=== PATIENT | female | born 1950 | race Caucasian/White ===

== ENCOUNTER 2020-11-25 10:59 | Inpatient (IN) | payer MEDICARE ==
[~2020-11-25] VITALS: Ht 152.4 cm; Wt 81.6 kg
--- NOTE | 2020-11-25 11:10 | NUR ---
ASSUME PATIENT CARE. PT WAS SENT BY PMD FOR FURTHER EVALUATION OF RLE PAIN AND SWELLING. PT STATES BEEN HURTING SINCE 11/18. PT GOWNED AND PLACED ON MONITOR. DENIES SOB OR ANY CHEST DISCOMFORT. AWAITING MD FRIEDMAN.
--- NOTE | 2020-11-25 11:15 | NUR ---
DR ANDRADE AT BEDSIDE FOR EVAL.
--- NOTE | 2020-11-25 11:22 | NUR ---
IV LINE STARTED BLOOD DRAWN AND SENT TO LAB.
[2020-11-25 11:29] LABS: BASOPHILS % (AUTO) 0.8 % (0.0-2.0); EOSINOPHILS % (AUTO) 4.7 % (0.0-6.0); HEMATOCRIT 39 % (33-45); HEMOGLOBIN 13.2 g/dL (11.5-14.8); LYMPHOCYTES % (AUTO) 32.3 % (20.0-44.0); MEAN CORPUSCULAR HGB CONC 34 g/dl (31.0-36.0); MEAN CORPUSCULAR VOLUME 98 fL (82-100); MONOCYTES # (AUTO) 0.7 K/uL (0.1-1.30); MONOCYTES % (AUTO) 11.7 % (2.0-12.0); NEUTROPHILS # (AUTO) 3.2 K/uL (1.8-8.9); NEUTROPHILS % (AUTO) 50.5 % (43.0-81.0); PLATELET COUNT (AUTO) 313 K/uL (150-450); RED BLOOD CELL COUNT(AUTO) 4.02 MIL/uL (4.0-5.2); WHITE BLOOD COUNT (AUTO) 6.3 K/uL (4.3-11.0)
[2020-11-25 11:36] LABS: CALCIUM, SERUM 8.4 mg/dL (8.5-10.1); POTASSIUM 3.7 mmol/L (3.5-5.1)
--- NOTE | 2020-11-25 12:25 | NUR ---
U/S TECH AT BEDSIDE FOR DUPLEX ULTRASOUND
[2020-11-25] MEDS ORDERED: VANCOMYCIN 1 GM in IV D5W 250 ML IV ONE (13:00)
[2020-11-25] MEDS ORDERED: ENOXAPARIN SODIUM 80 MG/0.8 ML DISP.SYRIN SQ ONE (13:00)
[2020-11-25] MEDS ORDERED: CEFTRIAXONE 1GM BAG (ER ONLY) 1 GM/50 ML PIGGYBACK IV ONE (13:00)
[2020-11-25] MEDS ORDERED: HYDR12.55 PO (13:02)
[2020-11-25] MEDS ORDERED: ATOR20TA PO (13:02)
[2020-11-25] MEDS ORDERED: CEFTRIAXONE 1GM BAG (ER ONLY) 50 ML IV ONE (13:04)
[2020-11-25] MEDS ORDERED: ENOXAPARIN SODIUM 60 MG/0.6 ML DISP.SYRIN SQ ONE (13:10)
--- NOTE | 2020-11-25 13:12 | NUR ---
CALLED DR. DONNA MCDANIEL [phone]
--- NOTE | 2020-11-25 13:16 | NUR ---
MOVE SHEET SUBMITTED.
--- NOTE | 2020-11-25 14:24 | NUR ---
AWAITING AUTH TO CALL DR. MAHAJAN
--- NOTE | 2020-11-25 15:13 | NUR ---
RECIEVED CALL FROM [employer] [employer]ETERIN[employer] VIROLOGIST, LEFT CONTACT # [phone]
--- NOTE | 2020-11-25 18:47 | NUR ---
CONTACTED [facility] CERTIFIED [employer] FACILITY OPERATOR REGARDING TRANSPORT UPDATE. SPOKE TO EDUARDO. NO NEW UPDATE AT THE MOMENT AND WAS TOLD THEY GONNA CALL BACK.
--- NOTE | 2020-11-25 19:20 | NUR ---
REPORT GIVEN TO [employer] MOLD FILLER REJI JESUS FOR CEE.
--- NOTE | 2020-11-25 20:46 | NUR ---
SPOKE TO PT. AWARE SHE WILL NEED ADMISSION AND TRANSFERED.
--- NOTE | 2020-11-25 22:20 | NUR ---
RECEIVED CALL FROM YOU PANDA TO ADMIT HERE.
--- NOTE | 2020-11-25 22:30 | NUR ---
Rolanda bojorquez in [facility] - 11/25/20 at [address] THEODORE FOR CONSULT, LEFT VOICEMAIL
--- NOTE | 2020-11-25 22:35 | NUR ---
DR MAHAJAN SPEAKING WITH DR ACOSTA
--- NOTE | 2020-11-25 22:50 | NUR ---
Rolanda bojorquez in [facility] - 11/25/20 at [address] EWELINA HERNANDEZ VOICEMAIL
--- NOTE | 2020-11-26 00:20 | NUR ---
SPOKE TO PT REGARDING MED LIST. STATED SHE TAKES MEDICATIONS FOR HTN, BUT UNABLE TO PROVIDE NAME OF MEDIACTION.
--- NOTE | 2020-11-26 00:53 | NUR ---
REPORT GIVEN TO SAUL MENDOZA FOR CEE. WILL TRANSFER PT SOON.
[2020-11-26 01:00] VITALS: BP 151/80
[2020-11-26] MEDS ORDERED: ONDANSETRON HCL/PF 4 MG/2 ML VIAL IV PRN (02:00)
[2020-11-26] MEDS ORDERED: HYDROCODONE/APAP 5/325MG TABLET PO PRN (02:00)
[2020-11-26] MEDS ORDERED: ACETAMINOPHEN 325 MG TABLET PO PRN (02:00)
[2020-11-26] MEDS ORDERED: ZOLPIDEM TARTRATE 5 MG TABLET PO PRN (02:00)
[2020-11-26] MEDS ORDERED: CEPHALEXIN MONOHYDRATE 250 MG CAPSULE PO SCH (06:00)
--- NOTE | 2020-11-26 06:04 | NUR ---
MS RN NOTES AWAKE & RESPONSIVE. NOT IN ANY DISTRESS. NO SOB NOTED. DENIES ANY PAIN OR DISCOMFORT AT THIS TIME. WITH IV-HL PATENT & INTACT. MONITORED ACCORDINGLY. CALL LIGHT WITHIN REACH. BED IN LOWEST POSITION. SR UP X 3 WITH BED ALARM ON FOR SAFETY. WILL ENDORSE TO NEXT SHIFT.
[2020-11-26 07:23] LABS: BASOPHILS % (AUTO) 0.9 % (0.0-2.0); EOSINOPHILS % (AUTO) 6.2 % (0.0-6.0); HEMATOCRIT 37 % (33-45); HEMOGLOBIN 12.2 g/dL (11.5-14.8); LYMPHOCYTES # (AUTO) 1.8 K/uL (0.8-4.8); LYMPHOCYTES % (AUTO) 37.8 % (20.0-44.0); MEAN CORPUSCULAR HGB CONC 33 g/dl (31.0-36.0); MEAN CORPUSCULAR VOLUME 98 fL (82-100); MONOCYTES # (AUTO) 0.7 K/uL (0.1-1.30); MONOCYTES % (AUTO) 14.2 % (2.0-12.0); NEUTROPHILS # (AUTO) 1.9 K/uL (1.8-8.9); NEUTROPHILS % (AUTO) 40.9 % (43.0-81.0); PLATELET COUNT (AUTO) 319 K/uL (150-450); WHITE BLOOD COUNT (AUTO) 4.7 K/uL (4.3-11.0)
--- NOTE | 2020-11-26 07:45 | NUR ---
MS/RN OPENING NOTES RECEIVED PATIENT ON BED AWAKE ALERT AND ORIENTED X4. PATIENT IS ON ROOM AIR SATURATING WELL. PATIENT IN NO APPARENT RESPIRATORY DISTRESS NOTED. NO COMPLAINED OF PAIN AT THIS TIME. WILL CONTINUE TO MONITOR.
[2020-11-26 07:49] LABS: CALCIUM, SERUM 8.7 mg/dL (8.5-10.1); CREATININE 0.6 mg/dL (0.6-1.3); POTASSIUM 3.6 mmol/L (3.5-5.1)
[2020-11-26 08:00] VITALS: BP 145/95
[2020-11-26] MEDS ORDERED: APIX5TAB4 PO (08:37)
[2020-11-26] MEDS ORDERED: APIX5TAB PO (08:37)
[2020-11-26] MEDS ORDERED: keflex (08:37)
[2020-11-26] MEDS ORDERED: AMLODIPINE BESYLATE 5 MG TABLET PO SCH (09:00)
[2020-11-26] MEDS ORDERED: HYDROCHLOROTHIAZIDE 25 MG TABLET PO SCH (09:00)
[2020-11-26 09:17] VITALS: BP 145/95
[2020-11-26] MEDS: APIXABAN 5 MG TABLET PO SCH ×2 (09:18→16:29)
[2020-11-26] MEDS: CEFAZOLIN 1 GM in IV D5W 50 ML IV SCH ×2 (09:28→14:02)
--- NOTE | 2020-11-26 18:39 | NUR ---
RN NOTES PATIENT IS ALERT AND ORIENTED X4. PATIENT IN ON ROOM AIR SATURATION 98%. PATIENT IN NO APPARENT RESPIRATORY DISTRESS NOTED. NO COMPLAINED OF PAIN NOTED. SEEN AND EXAMINED BY MD WITH ORDERS MADE AND CARRIED OUT. ALL DUE MEDICATION WAS GIVEN. DISCHARGED INSTRUCTIONS WAS GIVEN AND PATIENT VERBALIZED UNDERSTANDING. PATIENT LEFT THE HOSPITAL IN MEDICALLY STABLE CONDITION. PATIENT IS A SELF CARE.
[2020-11-26] MEDS ORDERED: ATORVASTATIN 10 MG TABLET PO SCH (22:00)
[2020-12-03] MEDS ORDERED: APIXABAN 5 MG TABLET PO SCH (09:00)
== END 2020-11-26 18:30 | disposition home health service (06) | DRG 300 ==
LOC: EDBD 10:59 → ER 12:05 → MED 11-26 00:33
PROVIDERS: ADMIT Internal Medicine; ATTEND Internal Medicine
DX: I82.411 Acute embolism and thrombosis of right femoral vein (principal); D68.59 Other primary thrombophilia; I10 Essential (primary) hypertension; I82.431 Acute embolism and thrombosis of right popliteal vein; E78.5 Hyperlipidemia, unspecified; Z88.2 Allergy status to sulfonamides; I82.491 Acute embolism and thrombosis of other specified deep vein of right lower extremity
CPT/HCPCS: 36415; 71045-TC; 80048-TC; 85025-TC; 85730-TC; 87081-TC; 93970-TC; A6253; C9803; G0378; J0690; J0696; J1650; J3370; J7050; J7060

== ENCOUNTER 2021-04-04 11:11 | Emergency (ER) | payer MEDICARE, OTHER ==
[~2021-04-04] VITALS: Ht 157.5 cm; Wt 77.1 kg
[~2021-04-04 11:11] MED LIST: APIX5TAB PO; APIX5TAB4 PO; ATOR20TA PO; keflex
--- NOTE | 2021-04-04 11:25 | NUR ---
AT BEDSIDE FOR EVAL.
--- NOTE | 2021-04-04 11:32 | NUR ---
[employer] SCOUT AT BEDSIDE FOR XRAY.
--- NOTE | 2021-04-04 11:35 | NUR ---
ER PHLEB AT BEDSIDE FOR BLOOD DRAW.
--- NOTE | 2021-04-04 12:15 | NUR ---
Dr. Erick Lyn
[2021-04-04 12:16] LABS: BASOPHILS % (AUTO) 0.8 % (0.0-2.0); EOSINOPHILS % (AUTO) 2.6 % (0.0-6.0); HEMATOCRIT 42 % (33-45); HEMOGLOBIN 14.2 g/dL (11.5-14.8); LYMPHOCYTES # (AUTO) 1.7 K/uL (0.8-4.8); LYMPHOCYTES % (AUTO) 33.9 % (20.0-44.0); MEAN CORPUSCULAR HGB CONC 34 g/dl (31.0-36.0); MEAN CORPUSCULAR VOLUME 99 fL (82-100); MONOCYTES # (AUTO) 0.5 K/uL (0.1-1.30); MONOCYTES % (AUTO) 11.2 % (2.0-12.0); NEUTROPHILS # (AUTO) 2.5 K/uL (1.8-8.9); NEUTROPHILS % (AUTO) 51.5 % (43.0-81.0); PLATELET COUNT (AUTO) 237 K/uL (150-450); RED BLOOD CELL COUNT(AUTO) 4.26 MIL/uL (4.0-5.2); WHITE BLOOD COUNT (AUTO) 4.9 K/uL (4.3-11.0)
--- NOTE | 2021-04-04 12:19 | NUR ---
TECH AT BEDSIDE FOR ULTRASOUND.
[2021-04-04 12:21] LABS: CALCIUM, SERUM 9.2 mg/dL (8.5-10.1); CARBON DIOXIDE 28 mmol/L (21-32); CHLORIDE 101 mmol/L (98-107); CREATININE 0.9 mg/dL (0.6-1.3); GLUCOSE 87 mg/dL (74-106); POTASSIUM 3.8 mmol/L (3.5-5.1); SODIUM SERUM 134 mmol/L (136-145); UREA NITROGEN, BLOOD 18 mg/dL (7-18)
--- NOTE | 2021-04-04 12:43 | NUR ---
Called Dr Lyn for Dr Larry.
--- NOTE | 2021-04-04 12:56 | NUR ---
Patient discharged to home in stable condition. Written and verbal after care instructions given. Patient verbalizes understanding of instruction.
[2021-04-04 12:57] VITALS: BP 131/68
== END 2021-04-04 12:57 | disposition home or self-care (01) ==
LOC: ER 11:17
DX: L03.115 Cellulitis of right lower limb (principal); I82.401 Acute embolism and thrombosis of unspecified deep veins of right lower extremity; I10 Essential (primary) hypertension; Z88.2 Allergy status to sulfonamides; Z60.2 Problems related to living alone; Z79.899 Other long term (current) drug therapy
CPT/HCPCS: 36415; 71045-TC; 80048-TC; 84484-TC; 85025-TC; 87040-TC; 93971-TC

== ENCOUNTER 2022-09-28 10:21 | Inpatient (IN) | payer MEDICARE, OTHER ==
[~2022-09-28] VITALS: Ht 170.2 cm; Wt 80.7 kg
[2022-09-28 11:43] LABS: BASOPHILS % (AUTO) 0.8 % (0.0-2.0); EOSINOPHILS % (AUTO) 1.7 % (0.0-6.0); HEMATOCRIT 40 % (33-45); LYMPHOCYTES # (AUTO) 1.4 K/uL (0.8-4.8); LYMPHOCYTES % (AUTO) 27.1 % (20.0-44.0); MEAN CORPUSCULAR HGB CONC 33 g/dl (31.0-36.0); MEAN CORPUSCULAR VOLUME 101 fL (82-100); MONOCYTES # (AUTO) 0.6 K/uL (0.1-1.30); MONOCYTES % (AUTO) 11.6 % (2.0-12.0); NEUTROPHILS # (AUTO) 3.1 K/uL (1.8-8.9); NEUTROPHILS % (AUTO) 58.8 % (43.0-81.0); PLATELET COUNT (AUTO) 168 K/uL (150-450); RED BLOOD CELL COUNT(AUTO) 3.93 MIL/uL (4.0-5.2); WHITE BLOOD COUNT (AUTO) 5.3 K/uL (4.3-11.0)
[2022-09-28 11:53] LABS: CALCIUM, SERUM 9.3 mg/dL (8.5-10.1); CREATININE 0.9 mg/dL (0.6-1.3); POTASSIUM 3.8 mmol/L (3.5-5.1)
--- NOTE | 2022-09-28 12:34 | NUR ---
MOVE SHEET SUBMITTED.
--- NOTE | 2022-09-28 12:38 | NUR ---
Extensive bilateral DVT involving the common femoral and superficial femoral veins on the left and the common femoral vein through the popliteal vein on the right. MD WESLEY
--- NOTE | 2022-09-28 13:05 | NUR ---
GOT BED 325-2 ADMITTING INFORMED.
[2022-09-28] MEDS ORDERED: APIX5TAB PO (13:41)
--- NOTE | 2022-09-28 13:45 | NUR ---
Report given to Karan MENDOZA
--- NOTE | 2022-09-28 14:03 | NUR ---
established iv line 22 g right hand
--- NOTE | 2022-09-28 14:15 | NUR ---
RN NOTE- 71 Y/O FEMALE BROUGHT IN FROM ED FOR ADMISSION / CELLULITIS . BEGIN ADMISSION PROCESS.
--- NOTE | 2022-09-28 14:30 | NUR ---
MOVED TO INPATIENT ROOM SAFELY PER PROTOCOL
--- NOTE | 2022-09-28 14:35 | NUR ---
ENVELOPE SEALER OPERATOR NOTE 71 YEAR OLD FEMALE BROUGHT IN BY EMERGENCY DEPARTMENT DUE TO RECURRING BILATERAL LEG CELLULITES AND LEG WOUNDS. HX OF HTN AND DVT AND PVD. PT IS CURRENTLY STABLE ON RA @96% A/OX4, AND AMBULATORY. R HAND IV 20G SL INTACT. BP-158/85, HR-70, RR-18, T-98.8. PT HAS BILATERAL LEG REDNESS AND MILD EDEMA. PT STATES NO PAIN AT THE MOMENT. PICTURES OF BLE TAKEN AND PLACED IN CHART. LABS ARE STABLE AT THE MOMENT. CHARGE NURSE AWARE. AT BEDSIDE. WILL CONTINUE TO MONITOR.
[2022-09-28] MEDS ORDERED: ONDANSETRON HCL/PF 4 MG/2 ML VIAL IVP PRN (15:30)
[2022-09-28] MEDS ORDERED: ACETAMINOPHEN 325 MG TABLET PO PRN (15:30)
--- NOTE | 2022-09-28 18:47 | NUR ---
RN CLOSING NOTE PATIENT LAYING IN BED, A/O X 4. ON ROOM AIR SATURATING WELL. CONTINENT WITH BRP. WITH IV ACCESS AT RIGHT HAND #20G SL. AMBULATORY WITH ASSIST. PT VOIDED 3X TIMES TODAY. NO C/O DISTRESS OR PAIN AT THIS TIME. ALL NEEDS ATTENDED, BED AT LOWER LOCKED POSITION, KEPT SIDE RAILS UP X 3. WILL DISCLOSE TO NOC SHIFT FOR CEE.
--- NOTE | 2022-09-28 19:30 | NUR ---
FORM GRADER OPERATOR OPENING NOTES RECEIVED PATIENT AWAKE IN BED. PATIENT IS A/O TIMES 4. ABLE TO MAKE NEEDS KNOWN. NO PAIN NOTED. NO SOB NOTED. ON ROOM AIR AND TOLERATING WELL. ON TELE MONITOR READING SR 66 AT THIS TIME. IV ACCESS ON THE RIGHT HAND # 20 INTACT AND PATENT AND SL. ALL SAFETY MEASURES IN PLACE. BED LOCKED IN THE LOWEST POSITION. CALL LIGHT AND TABLE IN EASY REACH. SIDE RAILS UP TIMES 2. BED ALARM ON. WILL CONTINUE TO MONITOR CLOSELY.
[2022-09-28 20:00] VITALS: BP 167/77
[2022-09-28] MEDS ORDERED: HYDROCODONE/APAP 5/325MG TABLET PO PRN (22:00)
[2022-09-28] MEDS: APIXABAN 5 MG TABLET PO SCH (22:26)
[2022-09-29] VITALS: BP 140/84
[2022-09-29 04:00] VITALS: BP 138/75
--- NOTE | 2022-09-29 06:24 | NUR ---
SCHOOL CLEANER CLOSING NOTES PATIENT AWAKE IN BED. PATIENT IS A/O TIMES 4. ABLE TO MAKE NEEDS KNOWN. NO PAIN NOTED. NO SOB NOTED. ON ROOM AIR AND TOLERATING WELL. ON TELE MONITOR READING SR 69 AT THIS TIME. IV ACCESS ON THE RIGHT HAND # 20 INTACT AND PATENT AND SL. DUE MEDS GIVEN ORDER. ALL SAFETY MEASURES IN PLACE. BED LOCKED IN THE LOWEST POSITION. CALL LIGHT AND TABLE IN EASY REACH. SIDE RAILS UP TIMES 2. BED ALARM ON. WILL ENDORSE FOR CEE.
--- NOTE | 2022-09-29 07:27 | NUR ---
MS RN OPENING NOTE Received patient in bed, awake, ambulatory. A/O x 4, able to make needs known. No c/o pain or discomfort at this time. Redness in bilateral lower leg noted. On room air, tolerating well. IV access in right hand #20g, sl. Hooked in monitor car operator with current reading of SR-66. Safety precautions maintained: bed in lowest locked position, call light and table within reach, side rails up x 2. Will continue to monitor.
[2022-09-29 07:28] LABS: BASOPHILS % (AUTO) 0.8 % (0.0-2.0); EOSINOPHILS % (AUTO) 3.1 % (0.0-6.0); HEMATOCRIT 42 % (33-45); HEMOGLOBIN 13.7 g/dL (11.5-14.8); LYMPHOCYTES # (AUTO) 1.8 K/uL (0.8-4.8); LYMPHOCYTES % (AUTO) 43.2 % (20.0-44.0); MEAN CORPUSCULAR HGB CONC 33 g/dl (31.0-36.0); MEAN CORPUSCULAR VOLUME 101 fL (82-100); MONOCYTES # (AUTO) 0.5 K/uL (0.1-1.30); NEUTROPHILS # (AUTO) 1.6 K/uL (1.8-8.9); NEUTROPHILS % (AUTO) 39.9 % (43.0-81.0); PLATELET COUNT (AUTO) 168 K/uL (150-450); RED BLOOD CELL COUNT(AUTO) 4.13 MIL/uL (4.0-5.2); WHITE BLOOD COUNT (AUTO) 4.1 K/uL (4.3-11.0)
[2022-09-29 07:53] LABS: CALCIUM, SERUM 9.5 mg/dL (8.5-10.1); CREATININE 0.8 mg/dL (0.6-1.3); MAGNESIUM 2.4 mg/dL (1.8-2.4); PHOSPHORUS 3.6 mg/dL (2.5-4.9); POTASSIUM 3.9 mmol/L (3.5-5.1)
[2022-09-29] MEDS: APIXABAN 5 MG TABLET PO SCH (08:21)
[2022-09-29 08:29] VITALS: BP 136/80
--- NOTE | 2022-09-29 09:22 | NUR ---
WOUND CARE CONSULT: PT PRESENTS CONTINENT AND INDEPENDENT WITH BED MOBILITY. PT NOTED TO HAVE BILATERAL LOWER LEG/ANKLE DISCOLORATION WITH WOUNDS/LESIONS AND SOME WEEPING, PRESENT ON ADMISSION. DR MARTINES CALLED FOR DPM CONSULT. IN AGREEMENT WITH PLAN OF CARE.
[2022-09-29] MEDS ORDERED: APIX5TAB PO (11:09)
[2022-09-29 11:55] VITALS: BP 127/67
--- NOTE | 2022-09-29 12:25 | NUR ---
RN DISCHARGED NOTE Patient discharged to home in stable condition. A/O x 4, on room air, tolerating well. Vitals signs taken and recorded. Discharge instruction and packet given to patient, verbalized understanding. Photo of skin issue taken. All belongings accounted for. IV removed, dry and clean dressing applied on site. ID band removed. MD and charge nurse aware. Patient left the unit at 1215 via wheelchair accompanied by RN and .
== END 2022-09-29 14:51 | disposition home or self-care (01) | DRG 300 ==
LOC: ER 10:30 → TELE 13:50
PROVIDERS: ADMIT Nurse Practitioner Acute Care; ATTEND Nurse Practitioner Acute Care
DX: I82.413 Acute embolism and thrombosis of femoral vein, bilateral (principal); E87.1 Hypo-osmolality and hyponatremia; L03.116 Cellulitis of left lower limb; L03.115 Cellulitis of right lower limb; L97.818 Non-pressure chronic ulcer of other part of right lower leg with other specified severity; I82.431 Acute embolism and thrombosis of right popliteal vein; E78.5 Hyperlipidemia, unspecified; I10 Essential (primary) hypertension; Z88.2 Allergy status to sulfonamides; I87.2 Venous insufficiency (chronic) (peripheral); I82.513 Chronic embolism and thrombosis of femoral vein, bilateral
CPT/HCPCS: 36415; 80048-TC; 80061-TC; 83735-TC; 84100-TC; 85025-TC; 85730-TC; 87081-TC; 93970-TC; G0378

== ENCOUNTER 2022-10-09 09:59 | Outpatient (CLI) | payer MEDICARE, OTHER ==
[~2022-10-09 09:59] MED LIST changes: -APIX5TAB4 PO; -ATOR20TA PO; -keflex
== END 2022-10-09 23:59 | disposition home or self-care (01) ==
LOC: WOU 09:59
PROVIDERS: ATTEND Podiatrist Foot & Ankle Surgery
DX: I87.313 Chronic venous hypertension (idiopathic) with ulcer of bilateral lower extremity (principal); L97.328 Non-pressure chronic ulcer of left ankle with other specified severity; L97.528 Non-pressure chronic ulcer of other part of left foot with other specified severity; L97.828 Non-pressure chronic ulcer of other part of left lower leg with other specified severity; L97.818 Non-pressure chronic ulcer of other part of right lower leg with other specified severity; I82.403 Acute embolism and thrombosis of unspecified deep veins of lower extremity, bilateral; I87.2 Venous insufficiency (chronic) (peripheral); Z79.01 Long term (current) use of anticoagulants
CPT/HCPCS: G0463

== ENCOUNTER 2022-10-10 09:45 | Outpatient (CLI) | payer MEDICARE, OTHER | END 2022-10-10 23:59 | disposition home or self-care (01) | LOC: MSC 09:45 | PROVIDERS: ATTEND Internal Medicine | DX: I82.503 Chronic embolism and thrombosis of unspecified deep veins of lower extremity, bilateral (principal); S81.809D Unspecified open wound, unspecified lower leg, subsequent encounter; R21 Rash and other nonspecific skin eruption; I10 Essential (primary) hypertension; E78.5 Hyperlipidemia, unspecified; E87.1 Hypo-osmolality and hyponatremia; D72.819 Decreased white blood cell count, unspecified; E66.9 Obesity, unspecified; Z71.3 Dietary counseling and surveillance ==

== ENCOUNTER 2022-11-09 10:07 | Outpatient (CLI) | payer MEDICARE, OTHER | END 2022-11-09 23:59 | disposition home health service (06) | LOC: WOU 10:07 | PROVIDERS: ATTEND Podiatrist Foot & Ankle Surgery | DX: I87.313 Chronic venous hypertension (idiopathic) with ulcer of bilateral lower extremity (principal); L97.823 Non-pressure chronic ulcer of other part of left lower leg with necrosis of muscle; L97.818 Non-pressure chronic ulcer of other part of right lower leg with other specified severity; I87.2 Venous insufficiency (chronic) (peripheral); I82.403 Acute embolism and thrombosis of unspecified deep veins of lower extremity, bilateral; Z79.01 Long term (current) use of anticoagulants | CPT/HCPCS: 15271; Q4133 ==

== ENCOUNTER 2022-11-09 10:54 | Outpatient (CLI) | payer MEDICARE, OTHER ==
[2022-11-09 11:33] LABS: ALBUMIN 3.1 g/dL (3.4-5.0); BILIRUBIN,TOTAL 0.5 mg/dL (0.2-1.0); CALCIUM, SERUM 8.9 mg/dL (8.5-10.1); CREATININE 0.9 mg/dL (0.6-1.3); POTASSIUM 4.4 mmol/L (3.5-5.1); TOTAL PROTEIN, SERUM 8.3 g/dL (6.4-8.2)
== END 2022-11-09 23:59 | disposition home or self-care (01) ==
LOC: MSC 10:54
PROVIDERS: ATTEND Internal Medicine
DX: N28.9 Disorder of kidney and ureter, unspecified (principal); R31.29 Other microscopic hematuria; R21 Rash and other nonspecific skin eruption; I82.503 Chronic embolism and thrombosis of unspecified deep veins of lower extremity, bilateral; Z79.01 Long term (current) use of anticoagulants; S81.809D Unspecified open wound, unspecified lower leg, subsequent encounter; I10 Essential (primary) hypertension; E78.5 Hyperlipidemia, unspecified; E87.1 Hypo-osmolality and hyponatremia; D72.819 Decreased white blood cell count, unspecified; E66.9 Obesity, unspecified; Z71.3 Dietary counseling and surveillance; D75.89 Other specified diseases of blood and blood-forming organs; F10.90 Alcohol use, unspecified, uncomplicated
CPT/HCPCS: 36415; 80053; G0463

== ENCOUNTER 2022-11-13 09:20 | Outpatient (CLI) | payer MEDICARE, OTHER | END 2022-11-13 23:59 | disposition home health service (06) | LOC: WOU 09:20 | PROVIDERS: ATTEND Podiatrist Foot & Ankle Surgery | DX: I87.312 Chronic venous hypertension (idiopathic) with ulcer of left lower extremity (principal); L97.822 Non-pressure chronic ulcer of other part of left lower leg with fat layer exposed; I87.2 Venous insufficiency (chronic) (peripheral); I82.403 Acute embolism and thrombosis of unspecified deep veins of lower extremity, bilateral; Z79.01 Long term (current) use of anticoagulants | CPT/HCPCS: G0463; A6209 ==

== ENCOUNTER 2022-11-23 10:11 | Emergency (ER) | payer MEDICARE, OTHER ==
[~2022-11-23] VITALS: Ht 157.5 cm; Wt 79.4 kg
[2022-11-23 10:22] VITALS: TEMP 99.1
[2022-11-23] MEDS ORDERED: ACETAMINOPHEN ES 500 MG TABLET ONE (10:46)
[2022-11-23 10:50] LABS: BASOPHILS % (AUTO) 0.9 % (0.0-2.0); EOSINOPHILS # (AUTO) 0.1 K/uL (0.0-0.7); EOSINOPHILS % (AUTO) 2.6 % (0.0-6.0); HEMATOCRIT 35 % (33-45); HEMOGLOBIN 11.6 g/dL (11.5-14.8); LYMPHOCYTES # (AUTO) 1.4 K/uL (0.8-4.8); LYMPHOCYTES % (AUTO) 30.7 % (20.0-44.0); MEAN CORPUSCULAR HEMOGLOBIN 33 PG (26.0-33.0); MEAN CORPUSCULAR HGB CONC 33 g/dl (31.0-36.0); MEAN CORPUSCULAR VOLUME 100 fL (82-100); MONOCYTES # (AUTO) 0.6 K/uL (0.1-1.30); MONOCYTES % (AUTO) 13.1 % (2.0-12.0); NEUTROPHILS # (AUTO) 2.3 K/uL (1.8-8.9); NEUTROPHILS % (AUTO) 52.7 % (43.0-81.0); PLATELET COUNT (AUTO) 234 K/uL (150-450); RED BLOOD CELL COUNT(AUTO) 3.49 MIL/uL (4.0-5.2); RED CELL DISTRIBUTION WIDTH 14.3 % (11.5-15.0); WHITE BLOOD COUNT (AUTO) 4.4 K/uL (4.3-11.0)
[2022-11-23] MEDS ORDERED: ACETAMINOPHEN ES 500 MG TABLET PO ONE (11:00)
[2022-11-23 11:09] LABS: CALCIUM, SERUM 8.7 mg/dL (8.5-10.1); CARBON DIOXIDE 25 mmol/L (21-32); CHLORIDE 102 mmol/L (98-107); CREATININE 0.8 mg/dL (0.6-1.3); GLUCOSE 89 mg/dL (74-106); SODIUM SERUM 135 mmol/L (136-145); UREA NITROGEN, BLOOD 21 mg/dL (7-18)
[2022-11-23 11:22] LABS: ALANINE AMINOTRANSFERASE 23 U/L (12-78); ALBUMIN 3.1 g/dL (3.4-5.0); ALKALINE PHOSPHATASE 84 U/L (46-116); ASPARTATE AMINOTRANSFERASE 24 U/L (15-37); BILIRUBIN,DIRECT 0.1 mg/dL (0.0-0.2); BILIRUBIN,TOTAL 0.7 mg/dL (0.2-1.0); NT-PRO BNP 404 pg/mL (0-125); TOTAL PROTEIN, SERUM 8.2 g/dL (6.4-8.2)
[2022-11-23 12:19] VITALS: BP 126/69; O2SAT 98
== END 2022-11-23 12:20 | disposition home or self-care (01) ==
LOC: ER 10:18
DX: R07.9 Chest pain, unspecified (principal); I10 Essential (primary) hypertension; Z88.2 Allergy status to sulfonamides; Z60.2 Problems related to living alone
CPT/HCPCS: 36415; 71045-TC; 80048-TC; 80076-TC; 83880; 84484-TC; 85025-TC

== ENCOUNTER 2022-12-07 09:27 | Outpatient (CLI) | payer MEDICARE, OTHER | END 2022-12-07 23:59 | disposition home or self-care (01) | LOC: WOU 09:27 | PROVIDERS: ATTEND Podiatrist Foot & Ankle Surgery | DX: I87.313 Chronic venous hypertension (idiopathic) with ulcer of bilateral lower extremity (principal); I82.403 Acute embolism and thrombosis of unspecified deep veins of lower extremity, bilateral; Z88.2 Allergy status to sulfonamides; Z91.013 Allergy to seafood | CPT/HCPCS: 15271; Q4158; 15275 ==

== ENCOUNTER 2022-12-07 14:30 | Outpatient (CLI) | payer MEDICARE, OTHER | END 2022-12-07 23:59 | disposition home or self-care (01) | LOC: MSC 14:30 | PROVIDERS: ATTEND Internal Medicine | DX: I82.503 Chronic embolism and thrombosis of unspecified deep veins of lower extremity, bilateral (principal); Z79.01 Long term (current) use of anticoagulants; S81.809D Unspecified open wound, unspecified lower leg, subsequent encounter; R31.29 Other microscopic hematuria; N28.9 Disorder of kidney and ureter, unspecified; I10 Essential (primary) hypertension; E78.5 Hyperlipidemia, unspecified; D75.89 Other specified diseases of blood and blood-forming organs; D72.819 Decreased white blood cell count, unspecified; E66.9 Obesity, unspecified; Z71.3 Dietary counseling and surveillance ==

== ENCOUNTER 2022-12-11 09:22 | Outpatient (CLI) | payer MEDICARE, OTHER | END 2022-12-11 23:59 | disposition home health service (06) | LOC: WOU 09:22 | PROVIDERS: ATTEND Podiatrist Foot & Ankle Surgery | DX: I87.312 Chronic venous hypertension (idiopathic) with ulcer of left lower extremity (principal); L97.822 Non-pressure chronic ulcer of other part of left lower leg with fat layer exposed; I82.403 Acute embolism and thrombosis of unspecified deep veins of lower extremity, bilateral; Z88.2 Allergy status to sulfonamides; Z91.013 Allergy to seafood | CPT/HCPCS: 11042; A4649 ==

== ENCOUNTER 2022-12-18 09:45 | Outpatient (CLI) | payer MEDICARE, OTHER | END 2022-12-18 23:59 | disposition home health service (06) | LOC: WOU 09:45 | PROVIDERS: ATTEND Podiatrist Foot & Ankle Surgery | DX: I87.312 Chronic venous hypertension (idiopathic) with ulcer of left lower extremity (principal); L97.822 Non-pressure chronic ulcer of other part of left lower leg with fat layer exposed; Z79.01 Long term (current) use of anticoagulants; I82.403 Acute embolism and thrombosis of unspecified deep veins of lower extremity, bilateral; Z88.2 Allergy status to sulfonamides; Z91.013 Allergy to seafood | CPT/HCPCS: 15271; Q4158 ==

== ENCOUNTER 2022-12-21 09:36 | Outpatient (CLI) | payer MEDICARE, OTHER | END 2022-12-21 23:59 | disposition home health service (06) | LOC: WOU 09:36 | PROVIDERS: ATTEND Podiatrist Foot & Ankle Surgery | DX: I87.312 Chronic venous hypertension (idiopathic) with ulcer of left lower extremity (principal); L97.822 Non-pressure chronic ulcer of other part of left lower leg with fat layer exposed; I82.403 Acute embolism and thrombosis of unspecified deep veins of lower extremity, bilateral; Z88.2 Allergy status to sulfonamides; Z91.013 Allergy to seafood | CPT/HCPCS: 11042 ==

== ENCOUNTER 2022-12-28 09:18 | Outpatient (CLI) | payer MEDICARE, OTHER | END 2022-12-28 23:59 | disposition home health service (06) | LOC: WOU 09:18 | PROVIDERS: ATTEND Podiatrist Foot & Ankle Surgery | DX: I87.312 Chronic venous hypertension (idiopathic) with ulcer of left lower extremity (principal); L97.828 Non-pressure chronic ulcer of other part of left lower leg with other specified severity; I82.403 Acute embolism and thrombosis of unspecified deep veins of lower extremity, bilateral; I87.2 Venous insufficiency (chronic) (peripheral); Z79.01 Long term (current) use of anticoagulants | CPT/HCPCS: G0463 ==

== ENCOUNTER 2023-05-07 09:43 | Outpatient (CLI) | payer MEDICARE, OTHER | END 2023-05-07 23:59 | disposition home or self-care (01) | LOC: WOU 09:43 | PROVIDERS: ATTEND Podiatrist Foot & Ankle Surgery | DX: I87.312 Chronic venous hypertension (idiopathic) with ulcer of left lower extremity (principal); I87.2 Venous insufficiency (chronic) (peripheral); L97.822 Non-pressure chronic ulcer of other part of left lower leg with fat layer exposed; M72.2 Plantar fascial fibromatosis; I82.403 Acute embolism and thrombosis of unspecified deep veins of lower extremity, bilateral; Z79.01 Long term (current) use of anticoagulants | CPT/HCPCS: 11042; A6209 ==

== ENCOUNTER 2023-07-09 09:25 | Outpatient (CLI) | payer MEDICARE, OTHER | END 2023-07-09 23:59 | disposition home or self-care (01) | LOC: WOU 09:25 | PROVIDERS: ATTEND Podiatrist Foot & Ankle Surgery | DX: I87.312 Chronic venous hypertension (idiopathic) with ulcer of left lower extremity (principal); L97.822 Non-pressure chronic ulcer of other part of left lower leg with fat layer exposed; I87.2 Venous insufficiency (chronic) (peripheral); I82.403 Acute embolism and thrombosis of unspecified deep veins of lower extremity, bilateral; Z79.01 Long term (current) use of anticoagulants | CPT/HCPCS: 11042; A6209 ==

== ENCOUNTER 2023-07-19 09:51 | Outpatient (CLI) | payer MEDICARE, OTHER | END 2023-07-19 23:59 | disposition home or self-care (01) | LOC: WOU 09:51 | PROVIDERS: ATTEND Podiatrist Foot & Ankle Surgery | DX: I87.312 Chronic venous hypertension (idiopathic) with ulcer of left lower extremity (principal); L97.822 Non-pressure chronic ulcer of other part of left lower leg with fat layer exposed; I87.2 Venous insufficiency (chronic) (peripheral); I82.403 Acute embolism and thrombosis of unspecified deep veins of lower extremity, bilateral; M72.2 Plantar fascial fibromatosis; Z79.01 Long term (current) use of anticoagulants | CPT/HCPCS: 11042; A6209 ==

== ENCOUNTER 2023-08-01 09:52 | Inpatient (IN) | payer MEDICARE, OTHER ==
[~2023-08-01] VITALS: Ht 157.5 cm; Wt 77.1 kg
[2023-08-01] MEDS ORDERED: IOHEXOL-350 100 ML VIAL IV ONE (10:28)
[2023-08-01] MEDS ORDERED: IV NS 0.9% 250 ML IV ONE (10:29)
[2023-08-01 10:51] LABS: BASOPHILS # (AUTO) 0.2 K/uL (0.0-0.2); EOSINOPHILS # (AUTO) 0.1 K/uL (0.0-0.7); EOSINOPHILS % (AUTO) 1.5 % (0.0-6.0); HEMATOCRIT 33 % (33-45); HEMOGLOBIN 10.6 g/dL (11.5-14.8); LYMPHOCYTES # (AUTO) 0.8 K/uL (0.8-4.8); LYMPHOCYTES % (AUTO) 14.3 % (20.0-44.0); MEAN CORPUSCULAR HEMOGLOBIN 31 PG (26.0-33.0); MEAN CORPUSCULAR HGB CONC 32 g/dl (31.0-36.0); MEAN CORPUSCULAR VOLUME 95 fL (82-100); MONOCYTES # (AUTO) 0.5 K/uL (0.1-1.30); MONOCYTES % (AUTO) 9.7 % (2.0-12.0); NEUTROPHILS # (AUTO) 3.8 K/uL (1.8-8.9); NEUTROPHILS % (AUTO) 70.5 % (43.0-81.0); PLATELET COUNT (AUTO) 305 K/uL (150-450); RED BLOOD CELL COUNT(AUTO) 3.43 MIL/uL (4.0-5.2); RED CELL DISTRIBUTION WIDTH 13.7 % (11.5-15.0); WHITE BLOOD COUNT (AUTO) 5.3 K/uL (4.3-11.0)
[2023-08-01] MEDS ORDERED: LOSA50TA39 PO (10:51)
[2023-08-01] MEDS ORDERED: RIVA10TA PO (10:51)
[2023-08-01 11:00] LABS: INR 0.99 (0.91-1.10); PARTIAL THROMBOPLASTIN TIME 27.1 SEC (24.3-34.3); PROTHROMBIN TIME 10.2 SECS (9.2-11.1)
[2023-08-01 11:01] LABS: CALCIUM, SERUM 7.8 mg/dL (8.5-10.1); CARBON DIOXIDE 23 mmol/L (21-32); CHLORIDE 104 mmol/L (98-107); GLUCOSE 103 mg/dL (74-106); POTASSIUM 4.4 mmol/L (3.5-5.1); SODIUM SERUM 134 mmol/L (136-145); UREA NITROGEN, BLOOD 25 mg/dL (7-18)
[2023-08-01 12:25] VITALS: O2SAT 99
[2023-08-01] MEDS ORDERED: ZOLPIDEM TARTRATE 5 MG TABLET PO PRN (13:30)
[2023-08-01] MEDS ORDERED: MAGNESIUM HYDROXIDE 30 ML UDC PO PRN (13:30)
[2023-08-01] MEDS ORDERED: Z GUARD REMEDY 4 OZ OINT TP PRN (13:30)
[2023-08-01] MEDS ORDERED: ONDANSETRON HCL/PF 4 MG/2 ML VIAL IVP PRN (13:30)
[2023-08-01] MEDS ORDERED: MAG HYDROX/AL HYDROX/SIMETH 30 ML UDC PO PRN (13:30)
[2023-08-01] MEDS ORDERED: ENOXAPARIN SODIUM 30 MG/0.3 ML DISP.SYRIN SQ SCH (14:00)
[2023-08-01 14:39] LABS: BASOPHILS % (AUTO) 0.8 % (0.0-2.0); EOSINOPHILS # (AUTO) 0.1 K/uL (0.0-0.7); EOSINOPHILS % (AUTO) 1.2 % (0.0-6.0); HEMATOCRIT 36 % (33-45); HEMOGLOBIN 12.2 g/dL (11.5-14.8); LYMPHOCYTES # (AUTO) 1.6 K/uL (0.8-4.8); MEAN CORPUSCULAR HEMOGLOBIN 33 PG (26.0-33.0); MEAN CORPUSCULAR HGB CONC 34 g/dl (31.0-36.0); MEAN CORPUSCULAR VOLUME 96 fL (82-100); MONOCYTES # (AUTO) 0.5 K/uL (0.1-1.30); MONOCYTES % (AUTO) 9.6 % (2.0-12.0); NEUTROPHILS # (AUTO) 2.9 K/uL (1.8-8.9); NEUTROPHILS % (AUTO) 57.4 % (43.0-81.0); PLATELET COUNT (AUTO) 322 K/uL (150-450); RED BLOOD CELL COUNT(AUTO) 3.75 MIL/uL (4.0-5.2); RED CELL DISTRIBUTION WIDTH 13.9 % (11.5-15.0); WHITE BLOOD COUNT (AUTO) 5.1 K/uL (4.3-11.0)
[2023-08-01] MEDS: CLOPIDOGREL BISULFATE 75 MG TABLET PO ONE (14:46)
[2023-08-01] MEDS: ASPIRIN EC 81 MG TABLET.DR PO STA (14:47)
[2023-08-01 14:59] LABS: CALCIUM, SERUM 8.7 mg/dL (8.5-10.1); CREATININE 0.8 mg/dL (0.6-1.3); POTASSIUM 4.2 mmol/L (3.5-5.1)
[2023-08-01 15:06] LABS: ALBUMIN 2.8 g/dL (3.4-5.0); BILIRUBIN,TOTAL 0.4 mg/dL (0.2-1.0); TOTAL PROTEIN, SERUM 8.4 g/dL (6.4-8.2)
[2023-08-01 15:14] LABS: THYROID STIMULATING HORMONE 0.571 uIU/mL (0.358-3.74)
[2023-08-01 15:34] LABS: INR 0.97 (0.91-1.10); PARTIAL THROMBOPLASTIN TIME 29.2 SEC (24.3-34.3); PROTHROMBIN TIME 10.3 SECS (9.2-11.1)
[2023-08-01 15:55] LABS: ERYTHROCYTE SEDIMENTATION RATE 123 MM/HR (0-30)
[2023-08-01 16:51] VITALS: BP 130/80; TEMP 97.7; O2SAT 98
[2023-08-01] MEDS: RIVAROXABAN 10 MG TABLET PO SCH (17:29)
[2023-08-01] MEDS ORDERED: BLOOD SUGAR DIAGNOSTIC 1 EACH STRIP IN SCH (18:00)
[2023-08-01] MEDS: BLOOD SUGAR DIAGNOSTIC 1 EACH STRIP IN SCH (18:38)
[2023-08-01 20:00] VITALS: BP 162/90; TEMP 98.4; O2SAT 100
[2023-08-01] MEDS ORDERED: SIMVASTATIN 20 MG TABLET PO SCH (22:00)
[2023-08-01] MEDS ORDERED: SIMVASTATIN 20 MG TABLET ONE (23:29)
[2023-08-01] MEDS: SIMVASTATIN 40 MG TABLET PO SCH (23:32)
[2023-08-02] VITALS: BP 148/47; TEMP 98.2; O2SAT 98
[2023-08-02 04:00] VITALS: BP 176/80; TEMP 98.1; O2SAT 99
[2023-08-02 07:10] LABS: EOSINOPHILS # (AUTO) 0.2 K/uL (0.0-0.7); EOSINOPHILS % (AUTO) 3.5 % (0.0-6.0); HEMATOCRIT 34 % (33-45); HEMOGLOBIN 11.5 g/dL (11.5-14.8); LYMPHOCYTES # (AUTO) 1.6 K/uL (0.8-4.8); LYMPHOCYTES % (AUTO) 37.5 % (20.0-44.0); MEAN CORPUSCULAR HEMOGLOBIN 32 PG (26.0-33.0); MEAN CORPUSCULAR HGB CONC 34 g/dl (31.0-36.0); MEAN CORPUSCULAR VOLUME 95 fL (82-100); MONOCYTES # (AUTO) 0.7 K/uL (0.1-1.30); MONOCYTES % (AUTO) 15.5 % (2.0-12.0); NEUTROPHILS # (AUTO) 1.8 K/uL (1.8-8.9); NEUTROPHILS % (AUTO) 42.5 % (43.0-81.0); PLATELET COUNT (AUTO) 317 K/uL (150-450); RED BLOOD CELL COUNT(AUTO) 3.57 MIL/uL (4.0-5.2); RED CELL DISTRIBUTION WIDTH 13.9 % (11.5-15.0); WHITE BLOOD COUNT (AUTO) 4.3 K/uL (4.3-11.0)
[2023-08-02 07:33] LABS: CALCIUM, SERUM 8.7 mg/dL (8.5-10.1); CREATININE 0.7 mg/dL (0.6-1.3); MAGNESIUM 2.2 mg/dL (1.8-2.4); PHOSPHORUS 3.5 mg/dL (2.5-4.9); POTASSIUM 3.6 mmol/L (3.5-5.1)
[2023-08-02 07:39] LABS: INR 1.08 (0.91-1.10); PARTIAL THROMBOPLASTIN TIME 34.7 SEC (24.3-34.3); PROTHROMBIN TIME 11.4 SECS (9.2-11.1)
[2023-08-02 08:00] VITALS: BP 164/83; TEMP 98.1; O2SAT 100
[2023-08-02] MEDS: ASPIRIN EC 81 MG TABLET.DR PO SCH (08:09)
[2023-08-02] MEDS: PANTOPRAZOLE 40 MG TABLET.DR PO SCH (08:09)
[2023-08-02 12:00] VITALS: BP 159/76; TEMP 98.4; O2SAT 100
[2023-08-02 16:00] VITALS: BP 153/71; TEMP 98.1; O2SAT 95
[2023-08-02 20:00] VITALS: BP 121/59; TEMP 97.7; O2SAT 94
[2023-08-02] MEDS: ATORVASTATIN 40 MG TABLET PO SCH (21:55)
[2023-08-02] MEDS ORDERED: SIMVASTATIN 20 MG TABLET PO SCH (22:00)
[2023-08-03] VITALS: BP 145/71; TEMP 98.4; O2SAT 96
[2023-08-03 04:00] VITALS: BP 168/69; TEMP 98.2; O2SAT 98
[2023-08-03] MEDS: ACETAMINOPHEN 325 MG TABLET PO PRN (04:16)
[2023-08-03 07:30] VITALS: BP 140/80; TEMP 97.7; O2SAT 98
== END 2023-08-03 16:25 | DRG 66 ==
LOC: ER 10:03 → TELE 11:59
DX: I63.49 Cerebral infarction due to embolism of other cerebral artery (principal); I10 Essential (primary) hypertension; I73.9 Peripheral vascular disease, unspecified; E78.5 Hyperlipidemia, unspecified; Z79.82 Long term (current) use of aspirin; Z86.718 Personal history of other venous thrombosis and embolism; Z88.2 Allergy status to sulfonamides; M48.02 Spinal stenosis, cervical region; R29.701 NIHSS score 1; Z79.01 Long term (current) use of anticoagulants; M47.812 Spondylosis without myelopathy or radiculopathy, cervical region; R20.0 Anesthesia of skin; R29.700 NIHSS score 0; G83.24 Monoplegia of upper limb affecting left nondominant side
CPT/HCPCS: 36415; 70450-TC; 70496-TC; 70498-TC; 70551-TC; 72141-TC; 80048-TC; 80053-TC; 80061-TC; 82962-TC; 83735-TC; 84100-TC; 84443-TC; 84484-TC; 85025-TC; 85652-TC; 85730-TC; 92526; 92611-TC; 93307-TC; 97110-TC; 97116-TC; 97530-TC; 97535-TC; A4217; G0378; J7050; Q9967

== ENCOUNTER 2023-12-18 10:26 | Outpatient (CLI) | payer MEDICARE, OTHER ==
[~2023-12-18 10:26] MED LIST changes: -APIX5TAB PO; +LOSA50TA39 PO; +RIVA10TA PO
== END 2023-12-18 23:59 | disposition home or self-care (01) ==
LOC: MSC 10:26
PROVIDERS: ATTEND Anesthesiology
DX: M48.061 Spinal stenosis, lumbar region without neurogenic claudication (principal); M47.27 Other spondylosis with radiculopathy, lumbosacral region; M75.122 Complete rotator cuff tear or rupture of left shoulder, not specified as traumatic; M62.830 Muscle spasm of back; M40.299 Other kyphosis, site unspecified; Z79.891 Long term (current) use of opiate analgesic